=== PATIENT | female | born 1950 | race Caucasian/White ===

== ENCOUNTER 2017-08-03 20:51 | Observation (INO) ==
[2017-08-03] MEDS ORDERED: Aspirin 81 MG TAB.CHEW PO ONE (21:06)
--- NOTE | 2017-08-03 21:09 | Emergency Department Note ---
Disposition Clinical Impression: Chest pain Qualifiers: Chest pain type: unspecified Qualified Code(s): R07.9 - Chest pain, unspecified Disposition: Admitted As Inpatient Condition: Fair Referrals: Ivette Adam CNP [Primary Care Provider] - Forms: ED Satisfaction Letter Time of Disposition: 22:24 Chest Pain HPI - General Chief Complaint: ED Chest Pain Stated Complaint: Severe Chest Pain Time Seen by Provider: 08/03/17 21:05 Source: patient Limitations: no limitations Vital Signs Reviewed: Yes Nursing Notes Reviewed: Yes - History of Present Illness HPI Narrative: 67-year-old female who comes in complaining of chest pain. Patient states she is having the pain for the last week off and on. She had no recent cardiac workup. Risk factors include family history and hypertension. Duration: intermittent Onset: during rest Pain Location: substernal, left chest Severity scale (1-10): 8 Quality: tightness, aching Pain Radiation: none Improves with: nothing Worsens with: nothing Treatments prior to arrival chest pain: none - Related Data Home Medications Medication Instructions Recorded Confirmed Calcium Carbonate [Calcium] 1,200 mg PO DAILY 02/28/16 02/28/16 Cholecalciferol (Vitamin D3) 1,000 unit PO DAILY 02/28/16 02/28/16 [Vitamin D] Fluticasone Propionate Nasal 1 spray NS DAILY 02/28/16 02/28/16 [Flonase] Ibandronate Sodium [Boniva] 150 mg PO QMONTH 02/28/16 02/28/16 Levothyroxine [Synthroid] 88 mcg PO DAILY 02/28/16 02/28/16 Nortriptyline [Pamelor] 30 mg PO HS 02/28/16 02/28/16 Paroxetine HCl [Paxil] 20 mg PO QAM 02/28/16 02/28/16 Trandolapril/Verapamil HCl [Tarka 1 tab PO DAILY 02/28/16 02/28/16 ER 2-240 mg Tablet] Allergies Allergy/AdvReac Type Severity Reaction Status Date / Time iodine Allergy Anaphylaxis Verified 02/17/15 09:40 All systems ED: reviewed and negative except as stated. Constitutional: Denies: fever, chills, weakness, weight change Eyes: Denies: eye pain, eye discharge, vision change ENT ED: Denies: ear pain, throat pain, dental pain, hearing loss, epistaxis, congestion, dysphagia Cardiovascular: Reports: chest pain. Denies: palpitations, dyspnea on exertion , edema, syncope Respiratory: Denies: cough, dyspnea, wheezes, hemoptysis, stridor Gastrointestinal: Denies: abdominal pain, nausea, vomiting, diarrhea, constipation, hematemesis, melena, hematochezia Genitourinary: Denies: dysuria, frequency, hematuria, discharge Musculoskeletal: Denies: back pain, neck pain, arthralgia, myalgia Integumentary: Denies: rash, abrasion, lesions Neurological: Denies: headache, weakness, numbness, paresthesias, confusion, abnormal gait, vertigo Psychiatric: Denies: anxiety, depression, suicidal thoughts, homicidal thoughts , auditory hallucinations, visual hallucinations Endocrine: Denies: fatigue Hematological/Lymphatic: Denies: easy bleeding, easy bruising Allergic/Immunologic: Denies: facial swelling, urticaria Chest Pain PMH - Past Medical History Medical history: Reports: arthritis, DVT, fibromyalgia, hypertension, thyroid disease Surgical history: Reports: appendectomy, cholecystectomy Psychiatric history: Reports: no psych history - Social History Smoking Status: Never smoker Alcohol use: Reports: none Drug use: Reports: none Physical Exam - General Limitations: no limitations General appearance: alert, in no apparent distress - Head Head exam: atraumatic, normocephalic, normal inspection - Eye Eye exam: Present: normal appearance, PERRL, EOMI - ENT ENT exam: normal exam, normal oropharynx, mucous membranes moist - Neck Neck exam: Present: normal inspection, full ROM, trachea midline - Chest Chest inspection: Present: normal inspection, symmetric chest wall rise - Respiratory Respiratory exam: Present: normal lung sounds bilaterally - Cardiovascular Cardiovascular exam: Present: regular rate, normal rhythm, normal heart sounds - Abdominal Exam Abdominal exam: Present: soft, Non-Tender. Absent: tenderness, distention, guarding, rebound, rigidity - Extremities Exam Extremities exam: Present: normal inspection, full ROM. Absent: tenderness, pedal edema - Expanded Lower Extremity Exam Neurovascular/Tendon exam: Absent: motor deficit, sensory deficit, tendon deficit Gait: observed and normal - Back Exam Back exam: Present: normal inspection, full ROM. Absent: tenderness - Neurological Exam Neurological exam: Present: alert, oriented X3 - Psychiatric Psychiatric exam: Present: normal affect, normal mood - Skin Skin exam: Present: warm, dry, intact, normal color Course - Reevaluation(s) Reevaluation #1: 67-year-old whose had intermittent chest pain for the last week it seems to come and go. Patient has had history of previous DVT in the leg it was a provoked DVT she had a fracture and was of splinted. This was several years ago she is not on a blood thinner now. Workup at this point time is negative however she does have risk factors and her symptoms are somewhat concerning story go ahead and admit her to the hospital. Time: 22:20 - Consultations Consultation #1: Discussed with ., admit Time: 22:23 Vital Signs Temperature 98.2 F 08/03/17 20:53 Pulse Rate 101 08/03/17 20:53 Respiratory Rate 16 08/03/17 20:53 Blood Pressure 166/90 08/03/17 20:53 O2 Sat by Pulse Oximetry 97 08/03/17 20:53 Temperature 98.2 F 08/03/17 20:53 Pulse Rate 101 08/03/17 20:53 Respiratory Rate 16 08/03/17 20:53 Blood Pressure 166/90 08/03/17 20:53 O2 Sat by Pulse Oximetry 92 08/03/17 21:06 Oxygen Delivery Oxygen Delivery Room Air Chest Pain - Lab Data Lab results reviewed: Yes I reviewed the patient's lab results. Result diagrams: 08/03/17 21:40 08/03/17 21:40 Lab Results 08/03/17 08/03/17 08/03/17 Range/Units 21:40 21:40 21:40 WBC 5.7 (4.3-11.1) K/mcL RBC 4.72 (3.82-4.97) M/mcL Hgb 13.6 (11.5-15.4) g/dL Hct 40.4 (35.3-44.9) % MCV 85.6 (83.0-100.0) fL MCH 28.8 (28.0-33.3) pg MCHC 33.7 (31.6-35.5) g/dL RDW 13.5 (11.5-14.5) % Plt Count 155 (140-400) K/mcL MPV 11.5 (9.4-12.4) fL Immature Gran % 0.0 (0-4) % Seg Neutrophils % 71.0 % Lymphocytes % 15.4 % Monocytes % 11.2 % Eosinophils % 1.9 % Basophils % 0.5 % Neutrophils # 4.1 (1.6-8.9) K/mcL Lymphocytes # 0.9 (0.6-4.6) K/mcL Monocytes # 0.6 (0.0-1.3) K/mcL Eosinophils # 0.1 (0.0-0.6) K/mcL Basophils # 0.0 (0.0-0.2) K/mcL PT 11.0 (9.4-12.1) Seconds INR 1.0 APTT 28.2 (26.0-36.0) Seconds D-Dimer 379 (0-500) ng/mLFEU Sodium 139 (136-145) mEq/L Potassium 3.9 (3.5-5.1) mEq/L Chloride 105 (98-107) mEq/L Carbon Dioxide 25 (23-29) mEq/L BUN 17 (8-23) mg/dL Creatinine 0.92 (0.60-1.20) mg/dL Est GFR ( Amer) > 60 (> 60) Est GFR (Non-Af Amer) > 60 (> 60) BUN/Creatinine Ratio 18 (6-26) Glucose 208 H (70-105) mg/dL Calculated Osmolality 296 (280-300) Calcium 9.4 (8.6-10.3) mg/dL Troponin I < 0.03 (< 0.04) ng/mL - Radiology Data Radiology results reviewed: Yes I reviewed the patient's radiology results. Chest X-Ray 08/03/17 21:06 IMPRESSION: No acute process. D/ / Flynn Hartman MD / Flynn Hartman MD Interpreting Provider: Flynn Hartman MD - EKG Data EKG attestation: Yes I reviewed and interpreted this EKG. EKG shows normal: sinus rhythm Rate: normal Rhythm: NSR Morton/QRS: normal Interpretation: no acute changes Heart Score - Score History: Moderately Suspicious EKG: Non Specific repolarisation Disturbance Age: Greater than 65 Risk Factors: 1-2 risk factors Troponin: Less than normal limit HEART Score Total: 5
[2017-08-03 21:58] LABS: Basophils % 0.5 %; Eosinophils # 0.1 K/mcL (0.0-0.6); Eosinophils % 1.9 %; Hematocrit 40.4 % (35.3-44.9); Hemoglobin 13.6 g/dL (11.5-15.4); Lymphocytes # 0.9 K/mcL (0.6-4.6); Lymphocytes % 15.4 %; Mean Corpuscular HGB Conc 33.7 g/dL (31.6-35.5); Mean Corpuscular Hemoglobin 28.8 pg (28.0-33.3); Mean Corpuscular Volume 85.6 fL (83.0-100.0); Mean Platelet Volume 11.5 fL (9.4-12.4); Monocytes # 0.6 K/mcL (0.0-1.3); Monocytes % 11.2 %; Neutrophils # 4.1 K/mcL (1.6-8.9); Platelet Count 155 K/mcL (140-400); Red Blood Count 4.72 M/mcL (3.82-4.97); Red Cell Distribution Width 13.5 % (11.5-14.5)
[2017-08-03 22:09] LABS: Activated Partial Thrombo Time 28.2 Seconds (26.0-36.0)
[2017-08-03 22:11] LABS: BUN/Creatinine Ratio 18 (6-26); Blood Urea Nitrogen 17 mg/dL (8-23); Calcium 9.4 mg/dL (8.6-10.3); Carbon Dioxide 25 mEq/L (23-29); Chloride 105 mEq/L (98-107); Glucose 208 mg/dL (70-105); Osmolality,Calculated 296 (280-300); Potassium 3.9 mEq/L (3.5-5.1); Sodium 139 mEq/L (136-145); eGFR For African Americans > 60 (> 60); eGFR For Non-African Americans > 60 (> 60)
[2017-08-03 22:12] LABS: Troponin I < 0.03 ng/mL (< 0.04)
[2017-08-03] MEDS ORDERED: Ondansetron 4 MG/2 ML VIAL IVP ONE (22:33)
--- NOTE | 2017-08-03 23:43 | Internal Medicine Consult Note ---
Date of Encounter: 08/03/17 Time of Encounter: 23:43 - Assessment and Plan (1) Chest pain Status: Acute Qualifiers: Chest pain type: unspecified Qualified Code(s): R07.9 - Chest pain, unspecified (2) Hypothyroidism Status: Acute Qualifiers: Hypothyroidism type: unspecified Qualified Code(s): E03.9 - Hypothyroidism , unspecified (3) DVT prophylaxis Status: Acute (4) Depression Status: Acute Qualifiers: Depression Type: unspecified Qualified Code(s): F32.9 - Major depressive disorder, single episode, unspecified Internal Medicine - CN: HPI - Data of Consult Requesting Physician: Mona Jacobs CNP - Consult Narrative History of present illness: Ms. Daigle is a 67 year old female who comes in complaining of chest pain. Patient states she is having the pain for the last week off and on. She had no recent cardiac workup. Risk factors include family history and hypertension. Past Med Surg Social Fam HX - Past Medical History Medical history: arthritis, DVT, fibromyalgia, hypertension, thyroid disease Psychiatric history: no psych history - Past Surgical History Surgical History: appendectomy, cholecystectomy - Social History Smoking Status: Never smoker Alcohol use: none Drug use: none - Family History Father Hx Family Cardiac Disorders: Yes ([place], Stents x5) Hx Family Respiratory Disorders: No Hx Family Cancer: No Hx Family GI Disorders: No Hx Family Genitourinary Disorders: No Hx Family Endocrine Disorder: Yes (DM) Hx Family Musculoskeletal Disorders: No Hx Family Neuromuscular Disorders: No Hx Family Neurologic Disorders: No Hx Family HEENT Disorders: No Hx Family Autoimmune Disorders: No Hx Family Reproductive Disorders: No Hx Family Psychosocial Disorders: No Hx Family Medical Disorders: No Mother Living Status: Age at : 92 Cause of : Natural causes Hx Family Cardiac Disorders: Yes (CHF) Hx Family Respiratory Disorders: No Hx Family Cancer: Yes (Breast) Hx Family GI Disorders: No Hx Family Genitourinary Disorders: No Hx Family Endocrine Disorder: No Hx Family Musculoskeletal Disorders: No Hx Family Neuromuscular Disorders: No Hx Family Neurologic Disorders: Yes (Dementia) Hx Family HEENT Disorders: No Hx Family Autoimmune Disorders: No Hx Family Reproductive Disorders: No Hx Family Psychosocial Disorders: No Hx Family Medical Disorders: No Internal Medicine - CN: Meds Calcium Carbonate [Calcium] 1,200 mg PO DAILY 02/28/16 [History] Cholecalciferol (Vitamin D3) [Vitamin D3] 2,000 unit PO DAILY 02/28/16 [History] Levothyroxine [Synthroid] 88 mcg PO DAILY 02/28/16 [History] Paroxetine HCl [Paxil] 20 mg PO QAM 02/28/16 [History] Benzonatate [Tessalon] 100 mg PO TID PRN #30 capsule 08/05/17 [Rx] amLODIPine [Norvasc] 5 mg PO DAILY #30 tablet 08/05/17 [Rx] 3 Allergy/AdvReac Type Severity Reaction Status Date / Time iodine Allergy Anaphylaxis Verified 02/17/15 09:40 Internal Medicine - CN: Exam - Constitutional Vitals: Temp Pulse Resp BP Pulse Ox 98.2 F 92 16 126/83 91 08/03/17 20:53 08/03/17 23:00 08/03/17 23:00 08/03/17 23:00 08/03/17 23:00 Internal Medicine - CN: Reslt - Labs CBC & Chem 7: 08/04/17 01:42 08/04/17 01:42 - ABG Interpretation ABG results: PT/INR, D-dimer PT 11.0 Seconds (9.4-12.1) 08/03/17 21:40 D-Dimer 379 ng/mLFEU (0-500) 08/03/17 21:40 Consult Discharge Plan - Plan Instructions: Chest Pain (DC) Additional Instructions: Your prescriptions have been sent to your pharmacy. Take your new medications as directed and continue your normal home medications. Stop taking Lisinopril. Return to your normal diet and activities as tolerated. May return to work on Saturday, wear a mask while at work. Recommend taking the week off. Return to the ER as needed for any other problems or concerns, or if your symptoms return or worsen. Referrals: Ivette Adam CNP [Primary Care Provider] - Prescriptions: amLODIPine [Norvasc] 5 mg PO DAILY #30 tablet Benzonatate [Tessalon] 100 mg PO TID PRN #30 capsule PRN Reason: Cough
[2017-08-04] MEDS ORDERED: Naloxone 0.4 MG/ML INJ IVP PRN (01:14)
--- NOTE | 2017-08-04 01:53 | Internal Med History&Physical ---
Date of Encounter: 08/04/17 Time of Encounter: 01:53 Assessment and Plan (1) Chest pain Status: Acute ASSESSMENT: - Chest pain due to *CAD *Muskuloskeletal CP - myofascial strain, costochondritis *GERD *Esophageal spasm *Pericarditis - unlikely *Pneumonia - no infiltrate on CXR PLAN: - cardiac enzymes x 2 q 8 hr - EKG now and in AM - ASA - O2 by NC to keep SpO2 greater than 92% - UA - CBCD, BMP in AM - Fasting lipids - Tylenol 650 mg PO q 4-6 hr PRN headache - Heparin 5000 U SQ BID - 2D Echo - Cardiology consult Qualifiers: Chest pain type: unspecified Qualified Code(s): R07.9 - Chest pain, unspecified (2) Hypothyroidism Status: Acute We will continue home medication. Qualifiers: Hypothyroidism type: unspecified Qualified Code(s): E03.9 - Hypothyroidism , unspecified (3) Depression Status: Acute We will continue home medication Qualifiers: Depression Type: unspecified Qualified Code(s): F32.9 - Major depressive disorder, single episode, unspecified (4) DVT prophylaxis Status: Acute Patient is ambulatory we [facility] [place] Internal Medicine - H&P: HPI Chief complaint: Chest pain Admitted From: Home Plans for Post Hospital Care: Home History of present illness: Ms. Daigle is a 67 year old female with no prior cardiac history who stented with 1 week history of pressure like substernal chest pain was no alleviating factor or aggravating factors and/or ideation, the patient was evaluated by the ER staff where her troponin was negative and her EKG shows no significant ST-T wave changes she was admitted for further evaluation and management to rule out acute coronary syndrome . Past Med Surg Social Fam HX - Past Medical History Medical history: arthritis, DVT, fibromyalgia, hypertension, thyroid disease Psychiatric history: no psych history - Past Surgical History Surgical History: appendectomy, cholecystectomy - Social History Smoking Status: Never smoker Smokeless Tobacco Status: No Alcohol use: none Drug use: none - Family History Father Hx Family Cardiac Disorders: Yes ([place], Stents x5) Hx Family Respiratory Disorders: No Hx Family Cancer: No Hx Family GI Disorders: No Hx Family Genitourinary Disorders: No Hx Family Endocrine Disorder: Yes (DM) Hx Family Musculoskeletal Disorders: No Hx Family Neuromuscular Disorders: No Hx Family Neurologic Disorders: No Hx Family HEENT Disorders: No Hx Family Autoimmune Disorders: No Hx Family Reproductive Disorders: No Hx Family Psychosocial Disorders: No Hx Family Medical Disorders: No Mother Living Status: Age at : 92 Cause of : Natural causes Hx Family Cardiac Disorders: Yes (CHF) Hx Family Respiratory Disorders: No Hx Family Cancer: Yes (Breast) Hx Family GI Disorders: No Hx Family Genitourinary Disorders: No Hx Family Endocrine Disorder: No Hx Family Musculoskeletal Disorders: No Hx Family Neuromuscular Disorders: No Hx Family Neurologic Disorders: Yes (Dementia) Hx Family HEENT Disorders: No Hx Family Autoimmune Disorders: No Hx Family Reproductive Disorders: No Hx Family Psychosocial Disorders: No Hx Family Medical Disorders: No Internal Medicine - H&P: Meds Calcium Carbonate [Calcium] 1,200 mg PO DAILY 02/28/16 [History] Cholecalciferol (Vitamin D3) [Vitamin D3] 2,000 unit PO DAILY 02/28/16 [History] Levothyroxine [Synthroid] 88 mcg PO DAILY 02/28/16 [History] Paroxetine HCl [Paxil] 20 mg PO QAM 02/28/16 [History] Benzonatate [Tessalon] 100 mg PO TID PRN #30 capsule 08/05/17 [Rx] amLODIPine [Norvasc] 5 mg PO DAILY #30 tablet 08/05/17 [Rx] 3 Allergy/AdvReac Type Severity Reaction Status Date / Time iodine Allergy Anaphylaxis Verified 02/17/15 09:40 All Systems PM: A 10-system review of systems was performed and is negative for pertinent findings except as documented above in the HPI. - Constitutional Constitutional: no chills, no fever(s), no night sweats - Cardiovascular Cardiovascular ROS IM: chest pain, no diaphoresis, no dyspnea, no lightheadedness, no palpitations, no syncope - Respiratory Respiratory: no cough, no dyspnea, no wheezing, no excessive phlegm production - Gastrointestinal Gastrointestinal: no abdominal pain, no diarrhea, no hematemesis, no hematochezia, no melena, no nausea, no vomiting - Neurological Neurological ROS: no confusion, no convulsions, no focal weakness, no numbness, no tingling, no tremor(s) - Constitutional Vitals: Temp Pulse Resp BP Pulse Ox 99.6 F 95 18 157/82 92 08/03/17 23:47 08/03/17 23:47 03/31/18 23:47 08/03/17 23:47 08/03/17 23:47 General appearance: Present: A&O X 3 - Head Head exam: Present: atraumatic, normocephalic - Neck Neck exam general surgery: Present: supple, trachea midline. Absent: lymphadenopathy - Respiratory Respiratory exam: Present: CTAB. Absent: accessory muscle use, rales, rhonchi, wheezes - Cardiovascular Cardiovascular exam: Present: RRR, +S1, +S2. Absent: diastolic murmur, gallop, rubs, systolic murmur - GI/Abdominal GI/Abdominal exam: Present: normal bowel sounds, soft, no peritoneal signs. Absent: distended, tenderness - Extremities Exam Extremities exam: Present: warm, radial pulses palpable and symmetrical. Absent : calf tenderness, cyanotic, pedal edema Internal Med - H&P Results - Labs CBC & Chem 7: 08/04/17 01:42 08/04/17 01:42
[2017-08-04 02:59] LABS: Basophils % 0.8 %; Eosinophils % 1.4 %; Hematocrit 40.5 % (35.3-44.9); Hemoglobin 13.2 g/dL (11.5-15.4); Immature Granulocytes % 0.3 % (0-4); Lymphocytes % 14.3 %; Mean Corpuscular HGB Conc 32.6 g/dL (31.6-35.5); Mean Corpuscular Hemoglobin 28.1 pg (28.0-33.3); Mean Corpuscular Volume 86.4 fL (83.0-100.0); Mean Platelet Volume 12.3 fL (9.4-12.4); Platelet Count 176 K/mcL (140-400); Red Blood Count 4.69 M/mcL (3.82-4.97); Red Cell Distribution Width 13.9 % (11.5-14.5); Segmented Neutrophils % 72.2 %
[2017-08-04 03:00] LABS: Basophils # 0.1 K/mcL (0.0-0.2); Eosinophils # 0.1 K/mcL (0.0-0.6); Monocytes # 0.7 K/mcL (0.0-1.3); Neutrophils # 4.8 K/mcL (1.6-8.9)
[2017-08-04 03:10] LABS: Alanine Aminotransferase 22 Units/L (7-52); Albumin 4.3 g/dL (3.5-5.7); Alkaline Phosphatase 79 Units/L (34-104); Aspartate Amino Transferase 18 Units/L (13-39); BUN/Creatinine Ratio 23 (6-26); Bilirubin,Total 0.4 mg/dL (0.3-1.0); Blood Urea Nitrogen 18 mg/dL (8-23); Calcium 9.4 mg/dL (8.6-10.3); Carbon Dioxide 26 mEq/L (23-29); Chloride 104 mEq/L (98-107); Cholesterol 179 mg/dL (< 200); Globulin 2.1 g/dL (2.4-3.5); Glucose 184 mg/dL (70-105); HDL Cholesterol 30 mg/dL (40-59); LDL Cholesterol,Calculated 98 mg/dL (0-99); Magnesium 1.9 mg/dL (1.6-2.6); Osmolality,Calculated 293 (280-300); Phosphorous 3.2 mg/dL (2.7-4.5); Potassium 3.9 mEq/L (3.5-5.1); Sodium 138 mEq/L (136-145); Total Protein 6.4 g/dL (6.4-8.9); Triglycerides 255 mg/dL (< 150); eGFR For African Americans > 60 (> 60); eGFR For Non-African Americans > 60 (> 60)
[2017-08-04 03:19] LABS: INR 1.1; Prothrombin Time 11.3 Seconds (9.4-12.1)
[2017-08-04] MEDS: Acetaminophen 325 MG TABLET PO PRN ×2 (06:17→16:20)
[2017-08-04] MEDS: Cholecalciferol (D-3) 1,000 UNIT TABLET PO SCH (10:26)
[2017-08-04] MEDS ORDERED: Ondansetron 4 MG/2 ML VIAL IVP PRN (16:28)
[2017-08-04 17:32] LABS: Bilirubin,Urine Negative (Negative); Blood,Urine Negative (Negative); Clarity,Urine Clear (Clear); Color,Urine Yellow (Yellow); Glucose,Urine (UA) Normal (Normal); Ketones,Urine Negative (Negative); Leukocyte Esterase,Urine Negative (Negative); Nitrite,Urine Negative (Negative); Protein,Urine Negative (Neg-Trace); Specific Gravity,Urine 1.024 (1.010-1.025); Urobilinogen,Urine Normal (Normal)
[2017-08-04 18:28] LABS: Adenovirus Not Detected (Not Detect); Bordetella Pertussis Not Detected (Not Detect); Chlamydophila pneumoniae Not Detected (Not Detect); Coronavirus 229E Not Detected (Not Detect); Coronavirus HKU1 Not Detected (Not Detect); Coronavirus NL63 Not Detected (Not Detect); Coronavirus OC43 Not Detected (Not Detect); Human Metapneumovirus Not Detected (Not Detect); Human Rhinovirus/Enterovirus Not Detected (Not Detect); Influenza A Subtype 2009 H1 Not Detected (Not Detect); Influenza A Untypeable Not Detected (Not Detect); Influenza B ***DETECTED*** (Not Detect); Mycoplasma pneumoniae Not Detected (Not Detect); Parainfluenza Virus 1 Not Detected (Not Detect); Parainfluenza Virus 2 Not Detected (Not Detect); Parainfluenza Virus 3 Not Detected (Not Detect); Parainfluenza Virus 4 Not Detected (Not Detect); Respiratory Syncytial Virus Not Detected (Not Detect)
--- NOTE | 2017-08-04 18:40 | Internal Med Progress Note ---
Date of Encounter: 08/04/17 Time of Encounter: 11:00 - Assessment and plan (1) Chest pain Current Visit: Yes Status: Acute Assessment and plan: Patient has midsternal chest pain radiating right to left. She describes as heaviness. She denies shortness of breath, nausea, vomiting, diaphoresis. He reports onset of symptoms apparently 2 months ago when she started taking lisinopril. Patient also reports dry hacking cough. Echocardiogram was ordered, canceled by cardiology. Ordered again. Stress test in the morning. Nothing by mouth after midnight. Troponins were negative. EKG normal sinus rhythm. Continue telemetry Echo in the morning O2 as needed to maintain sats greater than 92%. Continue monitor labs and vitals. Qualifiers: Chest pain type: unspecified Qualified Code(s): R07.9 - Chest pain, unspecified (2) DVT prophylaxis Current Visit: Yes Status: Acute Assessment and plan: SCD. (3) Depression Current Visit: Yes Status: Acute Assessment and plan: Chronic. Continue home medications. Qualifiers: Depression Type: unspecified Qualified Code(s): F32.9 - Major depressive disorder, single episode, unspecified (4) Hypothyroidism Current Visit: Yes Status: Acute Assessment and plan: Chronic. Continue home dose of Synthroid 88 g daily. Qualifiers: Hypothyroidism type: unspecified Qualified Code(s): E03.9 - Hypothyroidism , unspecified - Time Spent With Patient less than 15 minutes - Subjective Interval history: Patient was seen and assessed at bedside at 11 AM. She reports midsternal chest pain with radiation to the right and the left. She reports that she has had this chest heaviness and pain since she started lisinopril about 2 months ago. She also reports a dry hacking cough. She denies any headache, nausea, vomiting, abdominal pain. She denies shortness of breath or dizziness. Patient reports that she has to leave AMA due to having to work tomorrow. Her arrived and coerced her to stay. - Constitutional Vitals: Temp Pulse Resp BP Pulse Ox 99.0 F 94 16 130/59 90 08/04/17 16:01 08/04/17 16:01 08/04/17 16:01 08/04/17 16:01 08/04/17 16:01 General appearance: Present: cooperative, A&O X 3, pleasant, answers questions appropriately - Head Head exam: Present: atraumatic, normal inspection, normocephalic - Eye Eye exam: Present: normal appearance, conjuntiva pink, sclera anicteric - Neck Neck exam general surgery: Present: supple, trachea midline. Absent: lymphadenopathy, tenderness - Respiratory Respiratory exam: Present: CTAB. Absent: accessory muscle use, rales, rhonchi, wheezes - Cardiovascular Cardiovascular exam: Present: RRR, +S1, +S2. Absent: diastolic murmur, gallop, rubs, systolic murmur - GI/Abdominal GI/Abdominal exam: Present: normal bowel sounds, soft. Absent: distended, tenderness - Extremities Exam Extremities exam: Present: normal capillary refill, normal inspection, warm, radial pulses palpable and symmetrical. Absent: calf tenderness, cyanotic, pedal edema - Neurological Exam Neurological exam: Present: alert, oriented X3, no focal deficits. Absent: facial droop, speech deficit - Skin Skin exam: Present: dry, intact, normal color, warm. Absent: rash Internal Medicine: Result - Labs CBC & Chem 7: 08/04/17 01:42 08/04/17 01:42 Labs: Short CBC 08/04/17 Range/Units 01:42 WBC 6.6 (4.3-11.1) K/mcL Hgb 13.2 (11.5-15.4) g/dL Hct 40.5 (35.3-44.9) % Plt Count 176 (140-400) K/mcL Neutrophils # 4.8 (1.6-8.9) K/mcL BMP 08/04/17 01:42 Sodium 138 Potassium 3.9 Chloride 104 Carbon Dioxide 26 BUN 18 Creatinine 0.80 Glucose 184 H Calcium 9.4 Cardiac Enzymes 08/04/17 08/04/17 08/04/17 Range/Units 01:42 08:20 13:20 Troponin I < 0.03 < 0.03 < 0.03 (< 0.04) ng/mL Liver Function 08/04/17 Range/Units 01:42 Total Bilirubin 0.4 (0.3-1.0) mg/dL AST 18 (13-39) Units/L ALT 22 (7-52) Units/L Alkaline Phosphatase 79 (34-104) Units/L Albumin 4.3 (3.5-5.7) g/dL Urine 08/04/17 Range/Units 16:51 Urine Color Yellow (Yellow) Urine Clarity Clear (Clear) Urine pH 6.0 (5.0-8.0) pH Units Ur Specific [place] 1.024 (1.010-1.025) Urine Protein Negative (Neg-Trace) mg/dL Urine Glucose (UA) Normal (Normal) mg/dL - ABG Interpretation ABG results: PT/INR, D-dimer PT 11.3 Seconds (9.4-12.1) 08/04/17 01:42 D-Dimer 379 ng/mLFEU (0-500) 08/03/17 21:40 Consult Discharge Plan - Plan Referrals: Ivette Adam, INTERVIEWING CLERK [Primary Care Provider] -
[2017-08-05] MEDS ORDERED: Benzonatate 100 MG CAPSULE PO PRN (04:16)
[2017-08-05] MEDS ORDERED: Regadenoson 0.4 MG/5 ML SYRINGE IVP ONE (06:16)
[2017-08-05] MEDS ORDERED: amLODIPine 5 MG TABLET PO SCH (09:00)
[2017-08-05 10:09] VITALS: BP 125/68
[2017-08-05] MEDS: Cholecalciferol (D-3) 1,000 UNIT TABLET PO SCH (10:10)
--- NOTE | 2017-08-05 13:56 | Discharge Summary ---
- NOTES TO OUTPATIENT PROVIDER Notes to Outpatient Provider: Pt reported chest pain and cough since starting Lisinopril 2 mos ago. Stopped it and pt has been started on Norvasc 5mg po daily. Pt diagnosed with Flu B, declined Tamiflu. Ischemic work up completed. Echo pEF and no valvular dysfunction, stress test negative. Orders not resulted at time of discharge: Pending orders Date of Encounter: 08/05/17 Time of Encounter: 10:10 - Discharge Diagnosis (1) Chest pain Priority: Primary Status: Acute Comments: Pt denies chest pain today. Suspect that chest pain was multifactorial due to Influenza B, as well as related to Lisinopril. She has declined Tamiflu and has been started on Norvasc 5mg po daily, Lisionpril has been stopped. Chest x-ray was negative, troponins were negative. Echocardiogram showed an LVEF of 70-75%, mild LV DD and no significant valvular dysfunction. Patient had stress test that showed perfusion imaging was negative for ischemia or infarct, gaited EF is greater than 70%. Recommend close follow-up with primary care for evaluation of hypertension. Chest X-Ray 08/03/17 21:06 IMPRESSION: No acute process. D/ / Flynn Hartman MD / Flynn Hartman MD Interpreting Provider: Flynn Hartman MD Echocardiogram 08/05/17 16:32 Impressions: LVEF 70-75%. Mild left ventricular diastolic dysfunction. Unable to estimate RVSP due to lack of TR jet. No significant valvular dysfunction. Left Ventricular Wall Motion: Rest Echo Findings The apex, apical inferior, mid inferior, basal inferior, apical anterior, mid anterior, basal anterior, apical septal, mid inferior septal, basal inferior septal, apical lateral, mid anterior lateral, basal anterior lateral, mid anterior septal, mid inferior lateral, basal anterior septal and basal inferior lateral dorsey were hyperkinetic. Findings: Study Quality * Technically adequate exam. Right Ventricle * Normal right ventricular structure and function. Right Atrium * Normal right atrial size. Aortic Valve * Probable trileaflet valve with normal function. Mitral Valve * Normal mitral valve structure and function. Interatrial Septum * No evidence of PFO by color Doppler. Aorta * Normally sized aortic root. Pericardium * The pericardium appears normal. ECG Findings * Normal sinus rhythm. Left Ventricle * LVEF 70-75%. * Mild left ventricular diastolic dysfunction. Pulmonic Valve * No pulmonic regurgitation. * No pulmonic stenosis. * Pulmonic valve is not well visualized. Tricuspid Valve * Trace tricuspid regurgitation. * No tricuspid stenosis. * Unable to estimate RVSP due to lack of TR jet. Left Atrium * Mildly dilated left atrium. IVC * The IVC is dilated. * > 50% respiratory change Qualifiers: Chest pain type: unspecified Qualified Code(s): R07.9 - Chest pain, unspecified (2) DVT prophylaxis Priority: Secondary Status: Acute Comments: SCDs were ordered. (3) Depression Priority: Secondary Status: Acute Comments: Chronic. Continue home medications. Qualifiers: Depression Type: unspecified Qualified Code(s): F32.9 - Major depressive disorder, single episode, unspecified (4) Hypothyroidism Priority: Secondary Status: Acute Comments: Chronic. Synthroid 88 g daily. Continue this dose at home. Qualifiers: Hypothyroidism type: unspecified Qualified Code(s): E03.9 - Hypothyroidism , unspecified (5) Influenza B Priority: Secondary Status: Acute Comments: Pt denies any respiratory symptoms other than dry, hacking cough, as well as some rhinorrhea. RIP positive for Influenza B . Pt declined Tamiflu. Instructed pt to not go to work until at least Saturday and to wear a mask and wash her hands frequently. 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 Symptomatic treatment including increasing fluid intake, claritin, tessalon pearls, flonase. Hospital course: Ms. Daigle is a 67 year old female with PMH of HTN, depression. She presented to the emergency department with complaints chest pain that she has had for 2 months since starting lisinopril. She also reports cough and clear rhinorrhea. She was admitted for evaluation of chest pain workup. Initially cough was attributed to lisinopril, respiratory infectious panel returned positive for BP. She has declined Tamiflu. We have been treating symptoms, patient will go home with prescription for Tessalon Perles for cough. Chest pain workup included negative troponins, negative chest x-ray, echocardiogram with preserved ejection fraction, no significant valvular dysfunction. Stress test was negative for ischemia or infarct with a gated EF of greater than 70%. The pain is not reproducible. Lisinopril was stopped due to chest pain and cough, patient is started on Norvasc 5 mg by mouth daily. She denies chest pain at this time. Blood pressure is well controlled. Labs and vital signs are stable and within normal limits. Patient is safe and appropriate for discharge. Discharge discussed with: patient, family - Time Spent with Patient Total time spent providing and/or coordinating discharge services: Less than 30 minutes - Discharge Medications Prescriptions: amLODIPine [Norvasc] 5 mg PO DAILY #30 tablet Benzonatate [Tessalon] 100 mg PO TID PRN #30 capsule PRN Reason: Cough Home Medications: Calcium Carbonate [Calcium] 1,200 mg PO DAILY 02/28/16 [History] Cholecalciferol (Vitamin D3) [Vitamin D3] 2,000 unit PO DAILY 02/28/16 [History] Levothyroxine [Synthroid] 88 mcg PO DAILY 02/28/16 [History] Paroxetine HCl [Paxil] 20 mg PO QAM 02/28/16 [History] Benzonatate [Tessalon] 100 mg PO TID PRN #30 capsule 08/05/17 [Rx] amLODIPine [Norvasc] 5 mg PO DAILY #30 tablet 08/05/17 [Rx] Allergies/Adverse Reactions: 3 Allergy/AdvReac Type Severity Reaction Status Date / Time iodine Allergy Anaphylaxis Verified 02/17/15 09:40 Date of admission: 08/03/17 22:43 Primary care physician: Ivette Adam CNP Consults: 08/04/17 01:14 Consult to Nurse Navigator [CONS] Routine Comment: Discharging clinician: Mona Jacobs Anticipated date of discharge: 08/05/17 - Constitutional Vitals: Temp Pulse Resp BP Pulse Ox 98.3 F 91 14 125/68 95 08/05/17 10:08 08/05/17 10:08 08/05/17 10:08 08/05/17 10:08 08/05/17 10:08 General appearance: Present: cooperative, A&O X 3, pleasant, no acute distress, answers questions appropriately - Head Head exam: Present: atraumatic, normocephalic - Eye Eye exam: Present: normal appearance, conjuntiva pink, sclera anicteric - Neck Neck exam general surgery: Present: normal inspection, supple, trachea midline. Absent: lymphadenopathy, tenderness - Respiratory Respiratory exam: Present: CTAB. Absent: accessory muscle use, chest wall tenderness, rales, respiratory distress, rhonchi, wheezes - Cardiovascular Cardiovascular exam: Present: RRR, +S1, +S2. Absent: diastolic murmur, gallop, rubs, systolic murmur - GI/Abdominal GI/Abdominal exam: Present: normal bowel sounds, soft. Absent: distended, hepatomegaly, tenderness - Extremities Exam Extremities exam: Present: normal capillary refill, normal inspection, warm, radial pulses palpable and symmetrical. Absent: calf tenderness, cyanotic, pedal edema, tenderness - Neurological Exam Neurological exam: Present: alert, oriented X3, no focal deficits. Absent: facial droop, speech deficit - Skin Skin exam: Present: dry, intact, normal color, warm. Absent: rash - Patient Status Disposition: Home, Self-Care Condition: Good Functional capacity at discharge: independent ambulation Overall status at discharge: patient is progressing back to baseline - Discharge Instructions Follow Up With: Ivette Adam CNP [Primary Care Provider] - Additional Instructions: Your prescriptions have been sent to your pharmacy. Take your new medications as directed and continue your normal home medications. Stop taking Lisinopril. Return to your normal diet and activities as tolerated. May return to work on Saturday, wear a mask while at work. Recommend taking the week off. Return to the ER as needed for any other problems or concerns, or if your symptoms return or worsen. - Diet and Activity Activity: increase activity as tolerated Diet: advance to your usual diet
--- NOTE | 2017-08-05 14:43 | Electrocardiograph Report ---
[address] [place], [place] [address] Test Date: 2017-08-03 Pat Name: Stephanie Daigle Department: 103 Room: 3B38 Gender: F Maintenance Specialist: SHANIA : 1950 Requested By: Jimi Cotto Order Number: [id number] Reading MD: Erick Solomon Measurements Intervals [place] Rate: 99 P: 43 TX: 173 QRS: -4 QRSD: 72 T: 36 QT: 337 QTc: 393 Interpretive Statements SINUS RHYTHM LOW QRS VOLTAGE IN PRECORDIAL LEADS Electronically Signed On 08-05-2017 14:42:20 EDT by Erick Solomon
== END 2017-08-05 14:32 | disposition home or self-care (01) ==
LOC: EMEROO 20:51 → 3BNU 20:51
PROVIDERS: ADMIT Internal Medicine Nephrology; ATTEND Registered Nurse

== ENCOUNTER 2021-06-10 16:47 | Inpatient (IN) ==
[2021-06-10] MEDS ORDERED: 0.9 % Sodium Chloride 1,000 ML IV ONE (17:07)
[2021-06-10 17:32] LABS: Basophils % 0.2 %; Hemoglobin 12.9 g/dL (11.5-15.4); Immature Granulocytes % 0.8 % (0-4); Lymphocytes # 0.6 K/mcL (0.6-4.6); Lymphocytes % 3.8 %; Mean Corpuscular HGB Conc 33.1 g/dL (31.6-35.5); Mean Corpuscular Volume 84.6 fL (83.0-100.0); Mean Platelet Volume 11.3 fL (9.4-12.4); Monocytes # 1.9 K/mcL (0.0-1.3); Monocytes % 12.4 %; Neutrophils # 12.8 K/mcL (1.6-8.9); Platelet Count 176 K/mcL (140-400); Red Blood Count 4.61 M/mcL (3.82-4.97); Red Cell Distribution Width 13.9 % (11.5-14.5); Segmented Neutrophils % 82.8 %; White Blood Count 15.5 K/mcL (4.3-11.1)
[2021-06-10 17:58] LABS: Alanine Aminotransferase 22 Units/L (7-52); Albumin 3.8 g/dL (3.5-5.7); Albumin/Globulin Ratio 1.4 (1.1-2.2); Alkaline Phosphatase 72 Units/L (34-104); Amylase < 10 Units/L (29-103); Aspartate Amino Transferase 21 Units/L (13-39); BUN/Creatinine Ratio 24 (6-26); Blood Urea Nitrogen 18 mg/dL (8-23); Calcium 8.8 mg/dL (8.6-10.3); Carbon Dioxide 23 mEq/L (23-29); Chloride 99 mEq/L (98-107); Globulin 2.7 g/dL (2.4-3.5); Glucose 247 mg/dL (70-105); Lipase 7 Units/L (11-82); Osmolality,Calculated 284 (280-300); Potassium 3.1 mEq/L (3.5-5.1); Sodium 132 mEq/L (136-145); Total Protein 6.5 g/dL (6.4-8.9); Troponin I 0.03 ng/mL (< 0.04); eGFR For African Americans > 60 (> 60); eGFR For Non-African Americans > 60 (> 60)
[2021-06-10 18:10] LABS: Influenza A PCR Negative (Negative); Influenza B PCR Negative (Negative); Resp. Syncytial Virus PCR Negative (Negative); SARS-CoV-2 by PCR (In House) Negative (Negative)
[2021-06-10] MEDS ORDERED: Potassium Chloride Elixir 20 MEQ/15 ML UDC PO ONE (20:55)
[2021-06-10 20:58] LABS: Bacteria,Urine Few per hpf (None-Few); Bilirubin,Urine Negative (Negative); Blood,Urine Small (Negative); Clarity,Urine Turbid (Clear); Color,Urine Yellow (Yellow); Glucose,Urine (UA) 100 mg/dL (Normal); Ketones,Urine 20 mg/dL (Negative); Leukocyte Esterase,Urine Large (Negative); Mucus,Urine Few per lpf (None-Few); Nitrite,Urine Positive (Negative); Protein,Urine 100 mg/dL (Neg-Trace); Specific Gravity,Urine 1.019 (1.010-1.025); Squamous Epithelial Cell,Urine Few per hpf (None-Few); Urobilinogen,Urine Normal (Normal); WBC,Urine TNTC per hpf (0-3)
[2021-06-10] MEDS ORDERED: Melatonin 3 MG TABLET PO PRN (22:54)
[2021-06-10] MEDS ORDERED: Ondansetron 4 MG/2 ML VIAL IVP PRN (22:54)
[2021-06-10] MEDS ORDERED: Naloxone 0.4 MG/ML INJ IVP PRN (22:54)
[2021-06-10] MEDS ORDERED: cefTRIAXone 1,000 MG in 0.9 % Sodium Chloride Mini Bag 100 ML IVPB ONE (22:58)
[2021-06-10 23:01] LABS: Adenovirus Not Detected (Not Detect); Bordetella Pertussis Not Detected (Not Detect); Chlamydophila pneumoniae Not Detected (Not Detect); Coronavirus 229E Not Detected (Not Detect); Coronavirus HKU1 Not Detected (Not Detect); Coronavirus NL63 Not Detected (Not Detect); Coronavirus OC43 Not Detected (Not Detect); Human Metapneumovirus Not Detected (Not Detect); Human Rhinovirus/Enterovirus Not Detected (Not Detect); Influenza A Subtype 2009 H1 Not Detected (Not Detect); Influenza B Not Detected (Not Detect); Mycoplasma pneumoniae Not Detected (Not Detect); Parainfluenza Virus 1 Not Detected (Not Detect); Parainfluenza Virus 2 Not Detected (Not Detect); Parainfluenza Virus 3 Not Detected (Not Detect); Parainfluenza Virus 4 Not Detected (Not Detect); Respiratory Syncytial Virus Not Detected (Not Detect); SARS-CoV-2 Not Detected (Not Detect)
[2021-06-10] MEDS: Acetaminophen 325 MG TABLET PO PRN (23:42)
[2021-06-10] MEDS: 0.9 % Sodium Chloride 1,000 ML IVC SCH (23:43)
[2021-06-11 00:52] LABS: Basophils % 0.2 %; Hematocrit 36.5 % (35.3-44.9); Hemoglobin 11.9 g/dL (11.5-15.4); Immature Granulocytes % 0.7 % (0-4); Lymphocytes # 0.5 K/mcL (0.6-4.6); Lymphocytes % 3.4 %; Mean Corpuscular HGB Conc 32.6 g/dL (31.6-35.5); Mean Corpuscular Hemoglobin 27.9 pg (28.0-33.3); Mean Corpuscular Volume 85.7 fL (83.0-100.0); Mean Platelet Volume 11.3 fL (9.4-12.4); Monocytes # 1.4 K/mcL (0.0-1.3); Monocytes % 10.4 %; Neutrophils # 11.3 K/mcL (1.6-8.9); Platelet Count 169 K/mcL (140-400); Red Blood Count 4.26 M/mcL (3.82-4.97); Red Cell Distribution Width 14.1 % (11.5-14.5); Segmented Neutrophils % 85.3 %; White Blood Count 13.3 K/mcL (4.3-11.1)
[2021-06-11 01:11] LABS: BUN/Creatinine Ratio 24 (6-26); Blood Urea Nitrogen 17 mg/dL (8-23); Calcium 8.2 mg/dL (8.6-10.3); Carbon Dioxide 22 mEq/L (23-29); Chloride 104 mEq/L (98-107); Glucose 218 mg/dL (70-105); Osmolality,Calculated 284 (280-300); Potassium 3.8 mEq/L (3.5-5.1); Sodium 133 mEq/L (136-145); eGFR For African Americans > 60 (> 60); eGFR For Non-African Americans > 60 (> 60)
[2021-06-11 01:13] LABS: Magnesium 1.8 mg/dL (1.6-2.6)
[2021-06-11 01:14] LABS: Alanine Aminotransferase 24 Units/L (7-52); Albumin 3.5 g/dL (3.5-5.7); Albumin/Globulin Ratio 1.3 (1.1-2.2); Alkaline Phosphatase 58 Units/L (34-104); Aspartate Amino Transferase 24 Units/L (13-39); BUN/Creatinine Ratio 26 (6-26); Bilirubin,Total 0.7 mg/dL (0.3-1.0); Blood Urea Nitrogen 18 mg/dL (8-23); Calcium 8.3 mg/dL (8.6-10.3); Carbon Dioxide 20 mEq/L (23-29); Chloride 104 mEq/L (98-107); Globulin 2.6 g/dL (2.4-3.5); Glucose 216 mg/dL (70-105); Osmolality,Calculated 284 (280-300); Phosphorous 1.4 mg/dL (2.7-4.5); Potassium 3.8 mEq/L (3.5-5.1); Sodium 133 mEq/L (136-145); Total Protein 6.1 g/dL (6.4-8.9); Troponin I < 0.03 ng/mL (< 0.04); eGFR For African Americans > 60 (> 60); eGFR For Non-African Americans > 60 (> 60)
[2021-06-11 01:16] LABS: Troponin I < 0.03 ng/mL (< 0.04)
[2021-06-11] MEDS ORDERED: Azithromycin 500 MG in D5% in Water 250 ML IVPB SCH (07:00)
[2021-06-11] MEDS ORDERED: cefTRIAXone 1,000 MG in 0.9 % Sodium Chloride Mini Bag 100 ML IVPB SCH (09:00)
[2021-06-11] MEDS ORDERED: Perflutren Lipid Microsphere 1.3 ML in 0.9 % Sodium Chloride 8.7 ML IVP PRN (09:22)
[2021-06-11] MEDS: Acetaminophen 325 MG TABLET PO PRN ×2 (09:44→17:05)
[2021-06-11] MEDS: 0.9 % Sodium Chloride 1,000 ML IVC SCH ×3 (10:16→17:32)
[2021-06-11 10:34] LABS: Estimated Average Glucose 177 mg/dl; Hemoglobin A1C 7.8 %
[2021-06-11] MEDS ORDERED: DilTIAZem 50 MG/50 ML IV.SOLN IVC SCH (11:00)
[2021-06-11] MEDS: Ondansetron 4 MG/2 ML VIAL IVP SCH ×2 (11:17→17:30)
[2021-06-11] MEDS ORDERED: *HR* Heparin 5,000 UNIT/ML VIAL IVP ONE (11:35)
[2021-06-11] MEDS ORDERED: *HR* Heparin 5,000 UNIT/ML VIAL IVP PRN (11:35)
[2021-06-11] MEDS: Heparin 25,000UNIT/250ML 1/2NS 25,000 UNIT/250 ML IV.SOLN IVC SCH (13:10)
[2021-06-11 13:22] LABS: Hematocrit 38.3 % (35.3-44.9); Hemoglobin 12.3 g/dL (11.5-15.4); Mean Corpuscular HGB Conc 32.1 g/dL (31.6-35.5); Mean Platelet Volume 11.6 fL (9.4-12.4); Platelet Count 192 K/mcL (140-400); Red Cell Distribution Width 14.3 % (11.5-14.5); White Blood Count 15.9 K/mcL (4.3-11.1)
[2021-06-11 13:36] LABS: Heparin anti-factor XA UFH < 0.04 IU/mL (0.30-0.70)
[2021-06-11 13:37] LABS: INR 1.3; Prothrombin Time 14.6 Seconds (9.4-12.1)
[2021-06-11] MEDS: Piperacillin/Tazobactam 3.375 GM in 0.9 % Sodium Chloride Mini Bag 100 ML IVPB SCH (17:08)
[2021-06-11] MEDS ORDERED: Ibuprofen 600 MG TABLET PO ONE (17:14)
[2021-06-11] MEDS ORDERED: *HR* Heparin 5,000 UNIT/ML VIAL SQ SCH (18:00)
[2021-06-11 18:22] LABS: Adenovirus Not Detected (Not Detect); Bordetella Pertussis Not Detected (Not Detect); Chlamydophila pneumoniae Not Detected (Not Detect); Coronavirus 229E Not Detected (Not Detect); Coronavirus HKU1 Not Detected (Not Detect); Coronavirus NL63 Not Detected (Not Detect); Coronavirus OC43 Not Detected (Not Detect); Human Metapneumovirus Not Detected (Not Detect); Human Rhinovirus/Enterovirus Not Detected (Not Detect); Influenza A Subtype 2009 H1 Not Detected (Not Detect); Influenza B Not Detected (Not Detect); Mycoplasma pneumoniae Not Detected (Not Detect); Parainfluenza Virus 1 Not Detected (Not Detect); Parainfluenza Virus 2 Not Detected (Not Detect); Parainfluenza Virus 3 Not Detected (Not Detect); Parainfluenza Virus 4 Not Detected (Not Detect); Respiratory Syncytial Virus Not Detected (Not Detect); SARS-CoV-2 Not Detected (Not Detect)
[2021-06-11] MEDS: *HR* Heparin 5,000 UNIT/ML VIAL IVP PRN (20:12)
[2021-06-12] MEDS: Ondansetron 4 MG/2 ML VIAL IVP SCH ×4 (00:56→17:51)
[2021-06-12] MEDS: Piperacillin/Tazobactam 3.375 GM in 0.9 % Sodium Chloride Mini Bag 100 ML IVPB SCH ×3 (00:57→15:09)
[2021-06-12 02:50] LABS: Hematocrit 34.7 % (35.3-44.9); Hemoglobin 11.4 g/dL (11.5-15.4); Mean Corpuscular HGB Conc 32.9 g/dL (31.6-35.5); Mean Corpuscular Hemoglobin 28.6 pg (28.0-33.3); Mean Platelet Volume 11.9 fL (9.4-12.4); Platelet Count 162 K/mcL (140-400); Red Blood Count 3.99 M/mcL (3.82-4.97); Red Cell Distribution Width 14.3 % (11.5-14.5); White Blood Count 13.5 K/mcL (4.3-11.1)
[2021-06-12 03:07] LABS: BUN/Creatinine Ratio 27 (6-26); Blood Urea Nitrogen 17 mg/dL (8-23); Calcium 7.6 mg/dL (8.6-10.3); Carbon Dioxide 18 mEq/L (23-29); Chloride 105 mEq/L (98-107); Glucose 156 mg/dL (70-105); Osmolality,Calculated 285 (280-300); Sodium 135 mEq/L (136-145); eGFR For African Americans > 60 (> 60); eGFR For Non-African Americans > 60 (> 60)
[2021-06-12] MEDS: 0.9 % Sodium Chloride 1,000 ML IVC SCH ×2 (07:58→17:50)
[2021-06-12] MEDS ORDERED: Furosemide 20 MG/2 ML VIAL IVP ONE (08:24)
[2021-06-12] MEDS: Acetaminophen 325 MG TABLET PO PRN ×2 (08:57→18:36)
[2021-06-12] MEDS: Heparin 25,000UNIT/250ML 1/2NS 25,000 UNIT/250 ML IV.SOLN IVC SCH (10:07)
[2021-06-12] MEDS: DilTIAZem CD (24hr) 120 MG CAP.ER.24H PO SCH (14:05)
[2021-06-12] MEDS ORDERED: DilTIAZem 50 MG/50 ML IV.SOLN IVC SCH (16:45)
[2021-06-12] MEDS: Warfarin perPT PO SCH (18:00)
[2021-06-12] MEDS ORDERED: *HR* Warfarin 2.5 MG TABLET PO ONE (18:00)
[2021-06-13] MEDS: Piperacillin/Tazobactam 3.375 GM in 0.9 % Sodium Chloride Mini Bag 100 ML IVPB SCH ×3 (00:17→17:05)
[2021-06-13] MEDS: Ondansetron 4 MG/2 ML VIAL IVP SCH ×4 (00:18→17:12)
[2021-06-13 00:47] LABS: Hematocrit 35.2 % (35.3-44.9); Hemoglobin 11.7 g/dL (11.5-15.4); Mean Corpuscular HGB Conc 33.2 g/dL (31.6-35.5); Mean Corpuscular Hemoglobin 28.2 pg (28.0-33.3); Mean Corpuscular Volume 84.8 fL (83.0-100.0); Mean Platelet Volume 11.5 fL (9.4-12.4); Platelet Count 206 K/mcL (140-400); Red Blood Count 4.15 M/mcL (3.82-4.97); Red Cell Distribution Width 14.4 % (11.5-14.5); White Blood Count 15.2 K/mcL (4.3-11.1)
[2021-06-13 00:58] LABS: INR 1.3; Prothrombin Time 14.5 Seconds (9.4-12.1)
[2021-06-13 01:19] LABS: BUN/Creatinine Ratio 20 (6-26); Blood Urea Nitrogen 12 mg/dL (8-23); Calcium 7.7 mg/dL (8.6-10.3); Carbon Dioxide 19 mEq/L (23-29); Chloride 104 mEq/L (98-107); Glucose 201 mg/dL (70-105); Osmolality,Calculated 281 (280-300); Potassium 3.1 mEq/L (3.5-5.1); Sodium 133 mEq/L (136-145); eGFR For African Americans > 60 (> 60); eGFR For Non-African Americans > 60 (> 60)
[2021-06-13] MEDS: 0.9 % Sodium Chloride 1,000 ML IVC SCH (04:36)
[2021-06-13] MEDS: Heparin 25,000UNIT/250ML 1/2NS 25,000 UNIT/250 ML IV.SOLN IVC SCH (04:49)
[2021-06-13] MEDS: DilTIAZem CD (24hr) 120 MG CAP.ER.24H PO SCH (08:09)
[2021-06-13 09:44] LABS: Magnesium 1.9 mg/dL (1.6-2.6)
[2021-06-13] MEDS ORDERED: DilTIAZem SR (12hr) 60 MG CAP.ER.12H PO SCH (11:30)
[2021-06-13] MEDS ORDERED: Potassium Chloride Elixir 20 MEQ/15 ML UDC PO ONE ×2 (12:27→13:31)
[2021-06-13] MEDS ORDERED: Potassium Chloride Elixir 20 MEQ/15 ML UDC PO SCH (12:30)
[2021-06-13] MEDS ORDERED: DilTIAZem SR (12hr) 60 MG CAP.ER.12H PO ONE (13:18)
[2021-06-13] MEDS ORDERED: *HR* Warfarin 2.5 MG TABLET PO ONE (18:00)
[2021-06-13] MEDS ORDERED: *HR* Warfarin 4 MG TABLET PO ONE (18:00)
[2021-06-13] MEDS: Insulin LISPRO 300 UNITS/3 ML VIAL SUBQ SCH ×2 (18:35→21:16)
[2021-06-13] MEDS: Warfarin perPT PO SCH (19:11)
[2021-06-14] MEDS: Heparin 25,000UNIT/250ML 1/2NS 25,000 UNIT/250 ML IV.SOLN IVC SCH ×2 (00:12→16:29)
[2021-06-14] MEDS: Piperacillin/Tazobactam 3.375 GM in 0.9 % Sodium Chloride Mini Bag 100 ML IVPB SCH ×4 (00:15→23:18)
[2021-06-14] MEDS: Ondansetron 4 MG/2 ML VIAL IVP SCH ×4 (00:16→17:43)
[2021-06-14 00:41] LABS: Hematocrit 35.4 % (35.3-44.9); Mean Corpuscular HGB Conc 33.9 g/dL (31.6-35.5); Mean Corpuscular Hemoglobin 28.5 pg (28.0-33.3); Mean Corpuscular Volume 84.1 fL (83.0-100.0); Mean Platelet Volume 11.4 fL (9.4-12.4); Platelet Count 242 K/mcL (140-400); Red Blood Count 4.21 M/mcL (3.82-4.97); Red Cell Distribution Width 14.3 % (11.5-14.5); White Blood Count 11.5 K/mcL (4.3-11.1)
[2021-06-14 00:50] LABS: INR 1.1; Prothrombin Time 12.5 Seconds (9.4-12.1)
[2021-06-14 00:53] LABS: Heparin anti-factor XA UFH < 0.04 IU/mL (0.30-0.70)
[2021-06-14 01:06] LABS: BUN/Creatinine Ratio 18 (6-26); Blood Urea Nitrogen 10 mg/dL (8-23); Calcium 7.9 mg/dL (8.6-10.3); Carbon Dioxide 21 mEq/L (23-29); Chloride 105 mEq/L (98-107); Glucose 177 mg/dL (70-105); Osmolality,Calculated 283 (280-300); Sodium 135 mEq/L (136-145); eGFR For African Americans > 60 (> 60); eGFR For Non-African Americans > 60 (> 60)
[2021-06-14] MEDS: *HR* Heparin 5,000 UNIT/ML VIAL IVP PRN (01:44)
[2021-06-14] MEDS: Insulin LISPRO 300 UNITS/3 ML VIAL SUBQ SCH ×4 (07:56→22:22)
[2021-06-14] MEDS: DilTIAZem CD (24hr) 180 MG CAP.ER.24H PO SCH (07:58)
[2021-06-14 14:06] LABS: Magnesium 1.9 mg/dL (1.6-2.6)
[2021-06-14] MEDS: Warfarin perPT PO SCH (17:41)
[2021-06-14] MEDS ORDERED: *HR* Warfarin 4 MG TABLET PO ONE (18:00)
[2021-06-15] MEDS: Ondansetron 4 MG/2 ML VIAL IVP SCH ×5 (05:33→23:06)
[2021-06-15 05:53] LABS: Hematocrit 36.3 % (35.3-44.9); Hemoglobin 11.8 g/dL (11.5-15.4); Mean Corpuscular HGB Conc 32.5 g/dL (31.6-35.5); Mean Corpuscular Hemoglobin 27.8 pg (28.0-33.3); Mean Corpuscular Volume 85.4 fL (83.0-100.0); Platelet Count 284 K/mcL (140-400); Red Blood Count 4.25 M/mcL (3.82-4.97); Red Cell Distribution Width 14.4 % (11.5-14.5); White Blood Count 9.8 K/mcL (4.3-11.1)
[2021-06-15 05:59] LABS: INR 1.3
[2021-06-15 06:09] LABS: BUN/Creatinine Ratio 16 (6-26); Blood Urea Nitrogen 10 mg/dL (8-23); Calcium 8.5 mg/dL (8.6-10.3); Carbon Dioxide 24 mEq/L (23-29); Chloride 104 mEq/L (98-107); Glucose 161 mg/dL (70-105); Osmolality,Calculated 289 (280-300); Potassium 3.1 mEq/L (3.5-5.1); Sodium 138 mEq/L (136-145); eGFR For African Americans > 60 (> 60); eGFR For Non-African Americans > 60 (> 60)
[2021-06-15] MEDS ORDERED: Potassium Chloride Elixir 20 MEQ/15 ML UDC PO ONE (08:32)
[2021-06-15] MEDS: DilTIAZem CD (24hr) 180 MG CAP.ER.24H PO SCH (09:12)
[2021-06-15] MEDS: Piperacillin/Tazobactam 3.375 GM in 0.9 % Sodium Chloride Mini Bag 100 ML IVPB SCH (09:13)
[2021-06-15] MEDS: Insulin LISPRO 300 UNITS/3 ML VIAL SUBQ SCH ×4 (09:15→20:58)
[2021-06-15] MEDS ORDERED: Potassium Chloride Elixir 20 MEQ/15 ML UDC PO SCH (12:30)
[2021-06-15] MEDS: Cefepime HCl 2,000 MG in 0.9 % Sodium Chloride Mini Bag 100 ML IVPB SCH ×2 (15:00→23:06)
[2021-06-15] MEDS: *HR* Enoxaparin 80 MG/0.8 ML SYRINGE SQ SCH (17:55)
[2021-06-15] MEDS: Warfarin perPT PO SCH (18:00)
[2021-06-15] MEDS ORDERED: *HR* Warfarin 5 MG TABLET PO ONE (18:00)
[2021-06-16] MEDS: Ondansetron 4 MG/2 ML VIAL IVP SCH (05:39)
[2021-06-16] MEDS: *HR* Enoxaparin 80 MG/0.8 ML SYRINGE SQ SCH (05:40)
[2021-06-16 06:35] LABS: Hematocrit 37.5 % (35.3-44.9); Mean Corpuscular Hemoglobin 27.5 pg (28.0-33.3); Mean Corpuscular Volume 85.8 fL (83.0-100.0); Platelet Count 305 K/mcL (140-400); Red Blood Count 4.37 M/mcL (3.82-4.97); Red Cell Distribution Width 14.1 % (11.5-14.5); White Blood Count 10.3 K/mcL (4.3-11.1)
[2021-06-16 06:41] LABS: INR 1.6
[2021-06-16 06:54] LABS: BUN/Creatinine Ratio 14 (6-26); Blood Urea Nitrogen 9 mg/dL (8-23); Calcium 8.8 mg/dL (8.6-10.3); Carbon Dioxide 28 mEq/L (23-29); Chloride 103 mEq/L (98-107); Glucose 206 mg/dL (70-105); Magnesium 1.8 mg/dL (1.6-2.6); Osmolality,Calculated 289 (280-300); Potassium 3.3 mEq/L (3.5-5.1); Sodium 137 mEq/L (136-145); eGFR For African Americans > 60 (> 60); eGFR For Non-African Americans > 60 (> 60)
[2021-06-16] MEDS ORDERED: Potassium Chloride Elixir 20 MEQ/15 ML UDC PO SCH (09:00)
[2021-06-16] MEDS: DilTIAZem CD (24hr) 180 MG CAP.ER.24H PO SCH (09:00)
[2021-06-16] MEDS ORDERED: PARoxetine 20 MG TABLET PO SCH (09:00)
[2021-06-16] MEDS ORDERED: BuPROPion XL (24 HR) 150 MG TABLET PO SCH (09:00)
[2021-06-16] MEDS: Insulin LISPRO 300 UNITS/3 ML VIAL SUBQ SCH (11:13)
[2021-06-16] MEDS: Cefepime HCl 2,000 MG in 0.9 % Sodium Chloride Mini Bag 100 ML IVPB SCH (11:14)
[2021-06-16 11:16] VITALS: BP 148/77; PULSE 63; TEMP 97.4; O2SAT 92
== END 2021-06-16 11:47 | disposition home health service (06) | DRG 871 ==
LOC: EMEROOARM 16:47 → 3ANU 16:47 → SUATTDRO 21:22 → 3ANU 22:05
PROVIDERS: ADMIT Family Medicine; ATTEND Registered Nurse